=== PATIENT | male | born 1980 | race Hispanic/Latino ===

== ENCOUNTER 2024-05-31 14:18 | Emergency (ER) | payer OTHER, SELFPAY ==
[2024-05-31] MEDS ORDERED: Lidocaine 1% w/Epinephrine 1:100K 20 ML VIAL ONE (14:34)
[2024-05-31] MEDS ORDERED: Bacitracin 1 PK ONE (15:29)
[2024-05-31] MEDS ORDERED: Boostrix 0.5 ML (Tdap) VIAL (>/=7 yrs of age) ONE (15:30)
== END 2024-05-31 15:46 | disposition home or self-care (01) ==
LOC: BURERS 14:18
DX: S77.12XA Crushing injury of left thigh, initial encounter (principal); S71.112A Laceration without foreign body, left thigh, initial encounter; W23.0XXA Caught, crushed, jammed, or pinched between moving objects, initial encounter; Y93.89 Activity, other specified; Y92.61 Building [any] under construction as the place of occurrence of the external cause; Z23 Encounter for immunization
CPT/HCPCS: 12032; 90471; 90715

== ENCOUNTER 2024-06-08 08:34 | Emergency (ER) | payer SELFPAY | END 2024-06-08 08:55 | disposition home or self-care (01) | LOC: BURERS 08:34 | DX: L03.116 Cellulitis of left lower limb (principal); Z48.00 Encounter for change or removal of nonsurgical wound dressing | CPT/HCPCS: 99283 ==

== ENCOUNTER 2024-06-09 00:32 | Emergency (ER) | payer SELFPAY ==
[2024-06-09] MEDS ORDERED: Ibuprofen 800 MG TAB ONE (00:52)
== END 2024-06-09 00:57 | disposition home or self-care (01) ==
LOC: BURERS 00:32
DX: Z48.01 Encounter for change or removal of surgical wound dressing (principal)
CPT/HCPCS: 99282

== ENCOUNTER 2024-06-17 13:00 | Emergency (ER) | payer SELFPAY | END 2024-06-17 14:01 | disposition home or self-care (01) | LOC: BURERS 13:00 | DX: S71.112D Laceration without foreign body, left thigh, subsequent encounter (principal); W26.8XXD Contact with other sharp object(s), not elsewhere classified, subsequent encounter ==